=== PATIENT | male | born 1965 | race Caucasian/White ===

== ENCOUNTER 2019-03-24 18:00 | Observation (INO) | payer MEDICARE, BC ==
[2019-03-24] MEDS ORDERED: SODIUM CHLORIDE 0.9% 1000ML 1,000 ML IV ONE (18:09)
[2019-03-24] MEDS ORDERED: LACTATED RINGERS with DEXTROSE 1,000 ML IV ONE (18:15)
[2019-03-24] MEDS ORDERED: LACTATED RINGERS 1,000 ML IV ONE ×2 (18:26→20:30)
[2019-03-24 18:40] LABS: HEMATOCRIT 43 % (39-53); HEMOGLOBIN 13.6 gm/dl (13.5-17.7); MEAN CORPUSCULAR HEMOGLOBIN 28.8 pg (27.0-32.0); MEAN CORPUSCULAR HGB CONC 31.6 gm/dl (32.0-36.0); MEAN CORPUSCULAR VOLUME 91 fL (80-100)
[2019-03-24 19:00] LABS: ALBUMIN 3.7 gm/dl (3.4-5.0); BILIRUBIN,TOTAL 0.3 mg/dl (0.2-1.0); CALCIUM 9.2 mg/dl (8.5-10.1); CARBON DIOXIDE 19.9 mEq/L (21-32); CREATININE 1.25 mg/dl (0.80-1.30); POTASSIUM 3.5 mMol/L (3.5-5.1)
[2019-03-24 19:27] LABS: INR 6.42 (0.86-1.12)
[2019-03-24 19:36] LABS: ANISOCYTOSIS SLIGHT; BAND NEUTROPHILS % (MANUAL) 1 %; BASOPHILS % (MANUAL) 0 % (0-3); EOSINOPHILS % (MANUAL) 1 % (0-9); LYMPHOCYTES % (MANUAL) 41 % (10-50); MONOCYTES % (MANUAL) 9 % (0-12); NEUTROPHILS % (MANUAL) 48 % (37-80)
[2019-03-24 19:41] LABS: APPEARANCE,URINE Clear; BILIRUBIN,URINE NEGATIVE (NEGATIVE); COLOR,URINE Yellow; GLUCOSE, URINE (UA) TRACE (NEGATIVE); KETONES,URINE NEGATIVE (NEGATIVE); LEUKOCYTE ESTERASE ,URINE NEGATIVE (NEGATIVE); NITRATE,URINE NEGATIVE (NEGATIVE); OCCULT BLOOD,URINE NEGATIVE (NEG-TRACE); UROBILINOGEN,URINE 0.2 (0.2-1.0 EU)
[2019-03-24 19:53] LABS: CRYSTALS NEGATIVE (0-3 AVE/HPF); EPITHELIAL CELLS 0-1 (SQUAMOUS); RBC,URINE 0-1 (0-3AV/HPF); WBC,URINE 0-1 (0-5AV/HPF)
[2019-03-24 19:54] LABS: BACTERIA TRACE (< 1+)
[2019-03-25 08:31] LABS: CALCIUM 8.6 mg/dl (8.5-10.1); CARBON DIOXIDE 26.9 mEq/L (21-32); CREATININE 1.25 mg/dl (0.80-1.30); POTASSIUM 4.2 mMol/L (3.5-5.1)
[2019-03-25 08:37] LABS: INR 6.39 (0.86-1.12)
[2019-03-25 09:24] VITALS: O2SAT 100
[2019-03-25 11:37] VITALS: BP 161/79; PULSE 52; RESP 12; TEMP 94.8
== END 2019-03-25 13:10 | disposition home or self-care (01) | DRG 312 ==
LOC: ED 18:00 → ACUTE CARE 03-25 00:08
PROVIDERS: ADMIT Family Medicine; ATTEND Family Medicine
DX: R55 Syncope and collapse (principal); E23.2 Diabetes insipidus; E87.2 Acidosis; R41.82 Altered mental status, unspecified; E11.9 Type 2 diabetes mellitus without complications; R40.2362 Coma scale, best motor response, obeys commands, at arrival to emergency department; R40.2142 Coma scale, eyes open, spontaneous, at arrival to emergency department; R40.2252 Coma scale, best verbal response, oriented, at arrival to emergency department; T68.XXXA Hypothermia, initial encounter; R00.1 Bradycardia, unspecified; W19.XXXA Unspecified fall, initial encounter; Z79.01 Long term (current) use of anticoagulants
CPT/HCPCS: 36415; 70450; 71045; 80048; 80053; 81001; 82550; 82962; 85007; 85027; 85610; 93005; 96365; 96366; 99070; 99217; 99219; 99285